=== PATIENT | female | born 1985 | race Caucasian/White ===

== ENCOUNTER → 2017-01-11 | Outpatient (CLI) | payer OTHER ==
[~2017-01-11] MED LIST: ACETAMINOPHEN; ALBUTEROL17 GM INH; ANUCORT-HC25 MG/SUPP PR; ANUSOL-HC SUPP25 M1 PR; AUGMENTIN PO; AUGMENTIN875 MG PO; BACTRIM DS TABL1 TA1 PO; CIPRO PO; DELSYM30 MG/5 ML PO; DOXYCYCLINE150 MG PO; FIORICET 50-321 EACH PO; FLAGYL PO; FLEXERIL10 M1 PO; GABAPENTIN800 MG PO; HYCODAN60 ML 5MG/ PO; HYDROCODON-ACE1 EAC5 PO; HYDROCODON-ACE1 EAC9; IBUPROFEN800 MG PO; KEFLEX PO; LEVAQUIN PO; LOMOTIL TABLET1 TAB PO; LORTAB 5/500 TA1 TA1 PO; LORTAB 5/500 TA1 TA2 PO; MACROBID100 MG PO; MEDROL DOSEPAK4 MG PO; METFORMIN HCL500 M3 PO; NAPROSYN-EC500 M1 PO; NAPROXEN; NORCO 10-325 TA1 TAB PO; PERCOCET7.5 PO; PHENERGAN PO; PHENERGAN25 M1 PO; PHENERGAN25 MG; PHENERGAN25 MG PO; PRILOSEC20 M1 PO; PYRIDIUM PO; ROBITUSSIN AC PO; RONDEC-DM SYRU120 ML PO; SYNTHROID PO; TESSALON200 MG PO; TOPROL XL PO; TOPROL XL50 MG PO; TYLOX 5/500 CAP1 CAP PO; ULTRAM PO; VIBRAMYCIN100 M1 PO; VICODIN PO; ZANAFLEX2 MG PO; ZANAFLEX4 M1 PO; ZITHROMAX PO; ZOFRAN ODT4 MG PO
--- NOTE | ~2017-01-11 | CR169 ---
[facility] A Service of [facility] & [facility] RADIOLOGY TEXT RESULTS PATIENT: KP DANIELS LOCATION: [facility] : 87 UNIT #: [id number] AGE: [address]: POLA ANDERSEN SEX: F ORDER DR: [id number] [facility] [address] [place], [place] [address] [id number] O MR#: [id number] #: [id number] NAME: KP DANIELS : 1985 SEX: F STUDY DATE/TIME: 01/11/2017 13:18 UNIT: [facility] ROOM: STUDY DESCRIPTION: CR Knee 2 Views Lt Attending Physician: Libia López Ordering Physician: Libia López Primary Care Physician: Maggi Ramirez M.D. MEDICAL IMAGING REPORT This report is preliminary unless electronic signature is present EXAM Left knee, 2 views, 01/11/2017. INDICATIONS 31-year-old female with left knee pain. Symptoms for a year, worse the past 2 months. Fell a year ago, but no recent injury. Pain laterally then pops when walking. TECHNIQUE 2 views of the left knee, no comparisons. FINDINGS The examination is negative. No acute fracture. No distinct joint effusion. Mild joint space narrowing in all 3 compartments. IMPRESSION 1. Mild degenerative change, otherwise negative. Dictated by... Win Lang M.D. THIS IS AN ELECTRONICALLY VERIFIED REPORT Win Lang M.D. at 01/12/2017 5:03 PM Kate TD: 01/12/2017 12:04 JOB #: [id number] MEDICAL IMAGING REPORT Page 1 of 1 COPY
== END | disposition home or self-care (01) ==
LOC: CRAD 13:07
DX: M25.562 Pain in left knee (principal)
CPT/HCPCS: 73560

== ENCOUNTER 2017-01-13 14:29 | Emergency (ER) | payer OTHER ==
--- NOTE | ~2017-01-13 | CT4 ---
[facility] A Service of [facility] RADIOLOGY TEXT RESULTS PATIENT: KP DANIELS LOCATION: [facility] : 87 UNIT #: [id number] AGE: [address]: Niles Grewal MD SEX: F ORDER DR: [id number] [facility] [address] [place], [place] [address] [id number] P MR#: [id number] Acc #: [id number] NAME: KP DANIELS : 1985 SEX: F STUDY DATE/TIME: 01/13/2017 13:31 UNIT: MASTER ROOM: STUDY DESCRIPTION: CT Abd and Pelv Wo Cont Attending Physician: Niles Grewal M.D. Ordering Physician: Niles Grewal M.D. Primary Care Physician: Maggi Ramirez M.D. MEDICAL IMAGING REPORT This report is preliminary unless electronic signature is present EXAM CT abdomen and pelvis without contrast INDICATION Hematuria. Right flank pain for the past [address] of the abdomen and pelvis. This CT examination was performed with one or more of the following radiation dose reduction techniques: automatic exposure control, adjustment of mA and/or kV according to patient size, and iterative reconstruction. COMPARISON 10/25/2016. FINDINGS ABDOMEN WITHOUT CONTRAST: The included lung bases are clear. Liver measures 21.6 cm. Hepatic steatosis. Spleen, adrenal glands, pancreas unremarkable unenhanced appearance. Previous cholecystectomy. There is a 9-10 mm nonobstructing calculus lower pole of the left kidney. No radiodense ureteral calculus or hydronephrosis. Bowel loops are nondilated. Appendix normal. PELVIS WITHOUT CONTRAST: No radiodense bladder calculus. No pelvic mass or fluid. No aggressive appearing bone lesion. IMPRESSION 1. No acute findings. 2. Nonobstructing calculus in the left kidney. 3. Hepatomegaly with steatosis. [facility] A Service of [facility] RADIOLOGY TEXT RESULTS PATIENT: KP DANIELS LOCATION: [facility] : 87 UNIT #: [id number] AGE: [address]: Niles Grewal MD SEX: F ORDER DR: Dictated by... Rigoberto Vasquez M.D. THIS IS AN ELECTRONICALLY VERIFIED REPORT Rigoberto Vasquez M.D. at 01/17/2017 9:54 AM MELISSA/mona TD: 01/13/2017 14:19 JOB #: [id number] MEDICAL IMAGING REPORT Page 1 of 1 COPY
[2017-01-13 11:52] LABS: BASOPHIL% 0.4 % (0-2.5); EOSINOPHIL# 0.1 X10e3 (0-0.7); HEMATOCRIT 30.6 % (35.0-45.0); HEMOGLOBIN 9.2 gm/dL (12.0-16.0); LYMPHOCYTE# 2.4 X10e3 (1.0-3.5); LYMPHOCYTE% 24.3 % (17.0-45.0); MEAN CELL VOLUME 63.7 FL (83-96); MEAN CORPUSCULAR HEMOGLOBIN 19.1 PG (28-34); MEAN PLATELET VOLUME 8.5 FL (6.5-11.5); MONOCYTE# 0.4 X10e3 (0-1.0); MONOCYTE% 3.8 % (3.0-12.0); NEUTROPHIL# 7.1 X10e3 (1.5-7.1); NEUTROPHIL% 70.5 % (40-75); RED BLOOD COUNT 4.81 X10e (3.90-5.30); RED CELL DISTRIBUTION WIDTH 20.9 % (11.0-15.5)
[2017-01-13 11:55] LABS: DIFF IND YES
[2017-01-13 12:15] LABS: ALBUMIN SERUM 3.7 g/dL (3.5-5.0); BILIRUBIN, DIRECT 0.1 mg/dL (0.0-0.2); BILIRUBIN,INDIRECT 0.4 mg/dL (0.0-0.9); BILIRUBIN,TOTAL 0.5 mg/dL (0.2-2.0); CREATININE SERUM 0.5 mg/dL (0.6-1.4); GLOM FILT RATE Estimated 129.9 mL/min (>60); POTASSIUM 3.8 mmol/L (3.5-5.1); PROTEIN TOTAL SERUM 7.4 g/dL (6.0-8.3)
[2017-01-13 12:29] LABS: URINE SOURCE CLEAN CATCH
[2017-01-13 12:34] LABS: URINE APPEARANCE CLOUDY; URINE BILIRUBIN NEG (NEG); URINE BLOOD NEG (NEG); URINE COLOR YELLOW; URINE GLUCOSE NEG (NEG); URINE KETONE TRACE (NEG); URINE LEUKOCYTE ESTERASE 2+ (NEG); URINE NITRATE POS (NEG); URINE PH 5.5 (5-8); URINE PROTEIN TRACE (NEG); URINE SPECIFIC GRAVITY 1.027 (1.003-1.035)
[2017-01-13 12:36] LABS: CULTURE INDICATED? YES; URINE BACTERIA AUWI 4+ (NEGATIVE); URINE SQUAMOUS EPITHELIAL CELL FEW /[HPF]; UWBCS1 AUWI 50-100 (0-5)
[2017-01-13 12:43] LABS: ANISOCYTOSIS MOD; ELLIPTOCYTES PRESENT; HYPERSEGMENTED POLYS PRESENT; HYPOCHROMIA SL; PLATELET ESTIMATE NORMAL (NORMAL); POIKILOCYTOSIS SL; SPHEROCYTE SL
[2017-01-13 12:44] LABS: PLATELET COUNT 414 X10e3 (140-420); REACTIVE LYMPHS PRESENT
[2017-01-13 12:45] LABS: URINE CRYSTALS CALCIUM OXALATE /[HPF]; URINE MUCUS PRESENT
[~2017-01-13 14:29] MED LIST changes: -GABAPENTIN800 MG PO; -HYDROCODON-ACE1 EAC9; -METFORMIN HCL500 M3 PO; -TOPROL XL50 MG PO; -ZANAFLEX4 M1 PO
[2017-03-02] MEDS ORDERED: TOPROL XL50 MG PO (11:59)
[2017-03-02] MEDS ORDERED: METFORMIN HCL500 M3 PO (11:59)
[2017-03-02] MEDS ORDERED: HYDROCODON-ACE1 EAC9 (12:00)
[2017-03-02] MEDS ORDERED: GABAPENTIN800 MG PO (12:01)
[2017-03-02] MEDS ORDERED: ZANAFLEX4 M1 PO (12:01)
== END 2017-01-13 15:10 | disposition home or self-care (01) ==
LOC: CED 14:29
DX: N39.0 Urinary tract infection, site not specified (principal); E11.9 Type 2 diabetes mellitus without complications; Z87.440 Personal history of urinary (tract) infections
CPT/HCPCS: 36415; 74176; 80048; 80076; 81003; 83690; 84703; 85025; 87086; 87088; 87186; 96361; 96374; 96375; 99284; J1885; J2405

== ENCOUNTER → 2017-03-02 | Day surgery (SDC) | payer OTHER ==
[~2017-03-02] MED LIST changes: +GABAPENTIN800 MG PO; +HYDROCODON-ACE1 EAC9; +METFORMIN HCL500 M3 PO; +TOPROL XL50 MG PO; +ZANAFLEX4 M1 PO
--- NOTE | ~2017-03-02 | OR ---
Unit #: [id number] #: [id number] Patient: KP DANIELS [id number] [address] [address] [id number] O MR#: [id number] NAME: KP DANIELS ROOM: Date of Procedure: 03/02/2017 Admission Date: 03/02/2017 Surgeon: Andrey Seymour M.D. : 1985 Attending Physician: Andrey Seymour M.D. Primary Care Physician: Maggi Ramirez M.D. OPERATIVE REPORT PROCEDURE PERFORMED Esophagogastroduodenoscopy with biopsies and colonoscopy with biopsies. INDICATIONS FOR PROCEDURE The patient with persistent diarrhea, abdominal pain mostly in the upper abdomen, undergoing evaluation with upper endoscopy and colonoscopy. MEDICATIONS Monitored anesthesia. POSTOPERATIVE FINDINGS 1. Small hiatal hernia. 2. Chronic appearing gastritis, biopsies taken. 3. Normal duodenum and distal duodenum. Biopsies taken looking for celiac disease. 4. Colonic mucosa was normal throughout. Random biopsies taken. 5. looking for microscopic colitis. 6. Small internal hemorrhoids. PLAN Symptomatic treatment. Follow up on the pathology report. DESCRIPTION OF PROCEDURE The patient was explained of the procedure, risks, and benefits along with risks and benefits of anesthesia. She was brought to the endoscopy room. Propofol anesthesia was given. Bite block was placed. The scope was passed down the mouth into the esophagus, stomach, duodenum, and distal duodenum. Findings as described. Biopsies taken. Gently, I pulled the scope out of the patient's mouth. At this time, she was turned around and repositioned for colonoscopy. Rectal exam was done, which was normal. Colonoscope was lubricated, passed up the rectum, advanced under direct vision all the way to the cecum. Cecum was identified by ileocecal valve and appendiceal orifice. Terminal ileum was intubated, shows normal mucosa. Colonic mucosa was normal. Random biopsies taken. I retroflexed in the rectum, small hemorrhoids seen. The scope was gently pulled out. She tolerated it well. Dictated by... Andrey Seymour M.D. Unit #: [id number] #: [id number] Patient: KP DANIELS RAVI/manuel TD: 03/02/2017 23:05 JOB #: [id number] OPERATIVE REPORT Page 1 of 1 X Andrey Seymour MD PROCEDURE OPERATIVE NOTE
== END | disposition home or self-care (01) ==
LOC: COPS 11:03
DX: K52.9 Noninfective gastroenteritis and colitis, unspecified (principal); K29.80 Duodenitis without bleeding; K29.50 Unspecified chronic gastritis without bleeding; K44.9 Diaphragmatic hernia without obstruction or gangrene; K64.8 Other hemorrhoids; E11.9 Type 2 diabetes mellitus without complications; I10 Essential (primary) hypertension; J45.909 Unspecified asthma, uncomplicated; E03.9 Hypothyroidism, unspecified; E66.01 Morbid (severe) obesity due to excess calories; Z68.41 Body mass index [BMI] 40.0-44.9, adult; Z87.442 Personal history of urinary calculi; Z88.8 Allergy status to other drugs, medicaments and biological substances; Z91.048 Other nonmedicinal substance allergy status; Z79.84 Long term (current) use of oral hypoglycemic drugs; Z79.891 Long term (current) use of opiate analgesic; Z79.899 Other long term (current) drug therapy; Z90.49 Acquired absence of other specified parts of digestive tract; Z98.890 Other specified postprocedural states
CPT/HCPCS: 82947; 88305; 88312; J2250